=== PATIENT | male | born 1960 ===

== ENCOUNTER → 2018-07-09 | Outpatient (CLI) | payer SELFPAY ==
[~2018-07-09] MED LIST: ATEN50TA36 PO; CIPR-344 PO; DULO60CA7 PO; EZET10TA41 PO; FAMO-67 PO; HYDR-385 PO; HYDR-389 PO; IBUP800T37 PO; PHEN200T32 PO; RIZA10TA PO; SIMV-54 PO
== END ==
LOC: EDSEX → US 12:34
PROVIDERS: ATTEND Nurse Practitioner
DX: Z02.9 Encounter for administrative examinations, unspecified (principal)

== ENCOUNTER 2018-07-12 00:49 | Day surgery (SDC) | payer OTHER ==
[~2018-07-12] VITALS: Ht 177.8 cm; Wt 79.8 kg
[2018-07-12] VITALS (7 sets, daily range): BP systolic 137–147; BP diastolic 81–89
[~2018-07-12 00:49] MED LIST changes: -CIPR-344 PO; -FAMO-67 PO; -HYDR-385 PO; -IBUP800T37 PO; -PHEN200T32 PO
[2018-07-12 08:52] LABS: PLATELET COUNT, AUTOMATED 278 K/uL (150-450)
[2018-07-12 08:55] LABS: INR 0.93
[2018-07-12] MEDS ORDERED: LIDOCAINE/SOD BICARB 8.4% SYR ID ONE (09:00)
[2018-07-12] MEDS ORDERED: FAMOTIDINE 20 MG TAB PO ONE (09:00)
[2018-07-12] MEDS ORDERED: NORMOSOL R SOLN(*) 1000 ML BAG 1,000 ML IV PRN (09:00)
[2018-07-12] MEDS ORDERED: GENTAMICIN(*) 80 MG/2 ML VIAL 160 MG in NS(*) 0.9% 100 ML BAG 100 ML IVPB ONE (09:00)
[2018-07-12] MEDS ORDERED: MIDAZOLAM 2 MG/2 ML VIAL IVP PRN (09:00)
[2018-07-12] MEDS ORDERED: LEVOFLOXACIN/D5W*500 MG/100 ML 100 ML IVPB ONE (09:00)
--- NOTE | 2018-07-12 09:20 | EKG ---
FACILITY: [facility] - [place] PATIENT NAME: ERIK ZUÑIGA : [id number] MR: [id number] V: [id number] EXAM DATE: ORDERING PHYSICIAN: GITA BROUSSARD TECHNOLOGIST: MARLO Schafer Reason : PRE-OP CYSTO Blood Pressure : / mmHG Vent. Rate : 069 BPM Atrial Rate : 069 BPM P-R Int : 140 ms QRS Dur : 082 ms QT Int : 404 ms P-R-T Axes : 042 012 005 degrees QTc Int : 432 ms Normal sinus rhythm No ST-T abnormalities No previous ECGs available Confirmed by GABRIEL FUENTES ([id number]) on 07/12/2018 7:39:35 PM Referred By: FLOYD Confirmed By:GABRIEL FUENTES
[2018-07-12] MEDS ORDERED: LIDOCAINE MPF 1% 5 ML VIAL ONE (09:57)
[2018-07-12] MEDS ORDERED: PROPOFOL EMUL(*) 10MG/ML 20 ML 20 ML ONE (09:57)
[2018-07-12] MEDS ORDERED: ONDANSETRON 4 MG/2 ML VIAL ONE (09:57)
[2018-07-12] MEDS ORDERED: DEXAMETHASONE SOD 4 MG/ML VIAL ONE ×2 (09:58→11:36)
[2018-07-12] MEDS ORDERED: fentaNYL CITR 100 MCG/2 ML AMP ONE ×2 (10:00→13:40)
[2018-07-12] MEDS ORDERED: fentaNYL CITR 100 MCG/2 ML AMP IVP ONE (10:45)
[2018-07-12] MEDS ORDERED: HYDROCORTISONE 1% CR 28.35 GM TP ONE (11:11)
[2018-07-12] MEDS ORDERED: IOPAMIDOL-200 50 ML VIAL IS ONE (11:11)
[2018-07-12] MEDS ORDERED: ROCURONIUM BROM 10 MG/ML 5 ML ONE (11:30)
[2018-07-12] MEDS ORDERED: METOCLOPRAMIDE 10 MG/2 ML SDV ONE (11:36)
[2018-07-12] MEDS ORDERED: IOPAMIDOL 61% 100 ML INFUS BTL 100 ML ONE (11:58)
--- NOTE | 2018-07-12 13:51 | RADIOLOGY IMAGING REPORT ---
FACILITY: [facility] - [place] PATIENT NAME: Maame Galeas : 1960 MR: [id number] V: [id number] EXAM DATE: ORDERING PHYSICIAN: ANGEL BARRIENTOS TECHNOLOGIST: Location: [facility] - [place] Patient: Maame Galeas : 1960 Visit/Account:[id number] Date of Sevice: 07/12/2018 Exam type: RETROGRADE PYELOGRAM History: Kidney stones Comparison: KV performed earlier in the day. Findings: Six portable intraoperative four separate spot views over the abdomen pelvis were submitted. The tot al fluoroscopy time was six seconds. The fluoroscopy dose was 2.76 mGray. Contrast is seen in the nondilated left renal collecting system and left ureter. No intraluminal zaina ling defects are identified A cystoscope projects over the lower pelvis. Small amount contrast was n oted within the bladder IMPRESSION: 1. As above Report Dictated By: Shauna Rowe MD at 07/12/2018 1:44 PM Report E-Signed By: Shauna Rowe MD at 07/12/2018 1:47 PM WSN:[email or web address]
--- NOTE | 2018-07-12 14:38 | RADIOLOGY IMAGING REPORT ---
FACILITY: [facility] - [place] PATIENT NAME: Maame Galeas : 1960 MR: [id number] V: [id number] EXAM DATE: [id number] ORDERING PHYSICIAN: ANGEL BARRIENTOS TECHNOLOGIST: Location: [facility] - [place] Patient: Maame Galeas : 1960 Visit/Account:[id number] Date of Sevice: 07/09/2018 KUB SINGLE VIEW ABDOMEN HISTORY: KIDNEY STONES Additional history: Preoperative COMPARISON: Left retrograde ureterogram same date FINDINGS: There is a faint 1.5 cm density projecting of the left posterior 12th rib which might represent left kidney stone. The renal shadows are poorly defined radiographically. No definite stones in the righ t side. Bowel gas pattern within normal limits. IMPRESSION: Equivocal findings for a low-density left renal stone. Report Dictated By: Gigi Hyde MD at 07/12/2018 2:31 PM Report E-Signed By: Gigi Hyde MD at 07/12/2018 2:35 PM WSN:[email or web address]
[2018-07-12] MEDS ORDERED: PHEN200T32 PO (14:43)
[2018-07-12] MEDS ORDERED: IBUP800T37 PO (14:44)
[2018-07-12] MEDS ORDERED: HYDR-385 PO (14:45)
[2018-07-12] MEDS ORDERED: CIPR-344 PO (14:45)
[2018-07-12] MEDS ORDERED: FAMO-67 PO (14:46)
[2018-07-12] MEDS ORDERED: APAP/HYDROCODONE 325/5 TAB PO ONE (15:10)
--- NOTE | 2018-07-13 00:54 | OPERATIVE REPORT 1 ---
EVENT DATE: July 12, 2018 SURGEON: Carlos Cabrales MD ANESTHESIOLOGIST: Sal Yun MD ANESTHESIA: General anesthetic. PREOPERATIVE DIAGNOSES 1. Left flank pain, etiology ? 2. Urgency and frequency of urination with associated straining. 3. Possible left ureterolithiasis. 4. Right renal lithiasis. 5. Left renal lithiasis. POSTOPERATIVE DIAGNOSES 1. Left flank pain, etiology ? 2. Urgency and frequency of urination with associated stranding. 3. No evidence of left ureterolithiasis. 4. Right renal lithiasis. 5. Left renal lithiasis. PROCEDURES PERFORMED 1. Cystourethroscopy. 2. Left ureteral pyelograms. 3. Hydrodistension of the bladder. 4. Bilateral external stent placement and then subsequent removal. 5. Right extracorporeal shockwave lithotripsy of two stones. 6. Left extracorporeal shockwave lithotripsy of two stones. DESCRIPTION OF PROCEDURE Under general anesthetic, the patient was prepped and draped in the standard lithotomy position. The 21 panendoscope admitted through the urethra into the bladder. Urethra looked normal. Prostate showed trilobar hyperplasia with obstruction. Bladder showed 3-4+ trabeculation. Trigones and ureteral orifices were normal. No inflammation or swelling about either orifice. The 10 cone-tipped catheter was introduced and placed in the left distal ureteral orifice, and left ureteral pyelograms showed no filling defects consistent with the stones. There was a delicate ureter with free drainage. The 10 cone-tipped catheter passed easily up the left collecting system and was secured to the catheter, and then a 6 whistle tip was passed up the right collecting system and secured. The patient was subsequently transferred to the stone treatment unit. After localization, the stones in the right kidney were treated with a total of 3100 shocks progressing from low to high KV fairly slowly. The cluster of stones in the inferior pole area, approximately three to four, were treated with a total of 2600 shocks, and then the stone in the midpole area of the right kidney was treated with a total of approximately 500 shocks. The patient was repositioned for extracorporeal shockwave lithotripsy of the two stones in the left kidney. The larger stone in the upper pole of that kidney was treated with a total of 2500 shocks, progressing from low to high KV fairly slowly. The stone appeared to be lodged in the posterior pole ganesh, and after treatment, the cupping of the ganesh was well identified in contradistinction to the round filling defect that it presented as before shockwave lithotripsy. The small inferior pole stone was treated with a total of 500 shocks. The external stents and Salgado were removed at the conclusion of the procedure. Patient tolerated the procedure satisfactorily and returned to the recovery room in satisfactory condition. This is a 58-year-old white male referred by Dr. Buckley and Roney Kahn of [place] with a complaint of left flank pain of approximately two weeks' duration when I saw him on 09 July 2018. Patient has constant urgency and frequency of urination and actually strains at times to void, and goes frequently in small amounts. That was particularly aggravating over the past two to three days prior to my seeing him this past Thursday. Options were discussed with the patient, and he was agreeable to evaluation and therapy. That has been accomplished. See operative note for details. Patient will be ready for discharge home when alert and functional, to force fluids, 12 glasses of water per day. Activities are as tolerated. He is to strain all his urine. He was sent home with strainers. He is to percuss both kidneys frequently to facilitate passage of stone particles. Copy of instructions for renal percussion was given to the patient. We plan followup at the [facility] this coming Thursday. Patient has my personal phone number if he has any questions. MARK
== END 2018-07-12 14:50 | disposition home or self-care (01) ==
LOC: OR 00:49 → EDSEX 10:00 → OR 14:50
DX: N20.0 Calculus of kidney (principal); M54.9 Dorsalgia, unspecified; I10 Essential (primary) hypertension; E78.00 Pure hypercholesterolemia, unspecified
CPT/HCPCS: 36415; 50590; 74018; 74420; 81001; 85025; 85610; 87088; 93005; A4338; C1758; J1100; J1580; J2001; J2405; J2704; J2765; J3010; J7050; Q9966; Q9967